=== PATIENT | female | born 1950 | race Caucasian/White ===

== ENCOUNTER → 2018-02-18 | Outpatient (CLI) | payer MEDICARE, OTHER | END | disposition home or self-care (01) | LOC: LABPAT 12:39 | PROVIDERS: ATTEND Orthopaedic Surgery | DX: Z01.812 Encounter for preprocedural laboratory examination (principal); M16.12 Unilateral primary osteoarthritis, left hip | CPT/HCPCS: 87070 ==

== ENCOUNTER 2018-02-28 05:45 | Inpatient (IN) | payer MEDICARE ==
[2018-02-15 09:07] VITALS: BMI 36.5
--- NOTE | 2018-02-27 11:04 | HP ---
HISTORY AND PHYSICAL DATE OF SERVICE: 02/28/2018. HISTORY: Ailin is a 67-year-old patient seen with symptomatic left hip osteoarthritis. After treatment options were discussed, she elected to proceed with left total hip arthroplasty. Consent regarding the procedure was obtained. Preoperative medical clearance was provided by Dr. Walsh. PAST MEDICAL HISTORY: Noncontributory. PAST SURGICAL HISTORY: Noncontributory. DAILY MEDICATIONS: Ibuprofen. ALLERGIES: None reported. SOCIAL HISTORY: Patient currently smokes cigarettes. PHYSICAL EXAMINATION: On physical evaluation of the left hip, there is diffuse tenderness, very limited range of motion with severe pain. Positive hip impingement sign. The left lower extremity is approximately 1 inch shorter than the right. Distal neurovascular exam is intact. RADIOGRAPHIC STUDIES: Radiographs of the left hip reveal severe osteoarthritic changes. IMPRESSION: 1. Left hip osteoarthritis. 2. Tobacco use. PLAN: Direct anterior left total hip arthroplasty. MMODL / IJN: [id number] /
[~2018-02-28 05:45] MED LIST: ACETAMINOPHEN TAB 500 MG TAB PO ONE; LIDOCAINE 1% 20 ML VIAL (10MG/ML) FOR IV START INTRADERMA PRN; MELOXICAM 7.5 MG TAB PO ONE; MIDAZOLAM 2 MG/2 ML VIAL IV PRN; TRANEXAMIC ACID 1,000 MG in SODIUM CHLORIDE 0.9% 50 ML IVPB ONE; ceFAZolin IN SWFI 2 GM/20 ML SYRINGE IVP ONE; fentaNYL (PF) 50 MCG/ML 2 ML AMP IV PRN
[2018-02-28] MEDS ORDERED: ONDANSETRON 4 MG/2 ML VIAL ONE (06:21)
[2018-02-28] MEDS: LACTATED RINGERS 1,000 ML IV SCH ×3 (07:05→22:17)
[2018-02-28] MEDS ORDERED: DEXAMETHASONE SOD PHOS (MDV) 100 MG/10 ML VIAL IV ONE (07:21)
[2018-02-28] MEDS ORDERED: MIDAZOLAM 2 MG/2 ML VIAL ONE (07:30)
[2018-02-28] MEDS ORDERED: ePHEDrine SULFATE/0.9% NACL/PF 50 MG/5 ML SYRINGE IV ONE (07:30)
[2018-02-28] MEDS ORDERED: TRANEXAMIC ACID 1,000 MG/10 ML VIAL ONE (07:30)
[2018-02-28] MEDS ORDERED: SODIUM CHLORIDE 0.9% 100 ML BAG ONE (07:30)
[2018-02-28] MEDS ORDERED: diphenhydrAMINE 50 MG/ML 1 ML VIAL ONE (07:30)
[2018-02-28] MEDS ORDERED: fentaNYL (PF) 50 MCG/ML 2 ML AMP ONE (07:30)
[2018-02-28] MEDS: ROPIVACAINE 246.25 MG, EPINEPHrine 0.5 MG, KETOROLAC 30 MG, cloNIDine HCL/PF 80 MCG, WA... MISCELLANE ONE ×10 (08:05→09:00)
[2018-02-28] MEDS ORDERED: LACTATED RINGERS 1,000 ML IV ONE (09:12)
--- NOTE | 2018-02-28 09:32 | FL ---
Fluoroscopy HISTORY: Left Hip replacement 20 seconds fluoroscopy time supplied to the referring clinician. 1 intraoperative C-arm image docume nts the procedure. See dictated report from orthopedic surgery.
--- NOTE | 2018-02-28 09:33 | XR ---
Limited left hip HISTORY: Left Hip replacement Intraoperative C-arm image documents the procedure
--- NOTE | 2018-02-28 09:33 | P.OP ---
Date of Procedure: 02/28/18 Preoperative Diagnosis: Left hip osteoarthritis Postoperative Diagnosis: Left hip osteoarthritis Procedure(s) Performed: Direct anterior left total hip arthroplasty Implants: 1. Depuy Corail KA size 12 press-fit standard collar femoral stem 2. Depuuy pinnacle 52 mm press-fit acetabular shell 3. Depuy pinnacle neutral polyethylene acetabular liner 36 mm ID 52 mm OD 4. Depuy metal femoral head 36 mm -2 Anesthesia: local, spinal Surgeon: Rubin Muir High Density Talc Coater Operator #1: Parish Shah Estimated Blood Loss (ml): 300 Pathology: other (Femoral head) Condition: stable Disposition: PACU Indications for Procedure: 67-year-old patient seen with symptomatic left hip osteoarthritis. After treatment options were discussed, she elected to proceed with total hip arthroplasty. Operative Findings: see description of procedure Description of Procedure: The patient was taken to the operative suite. Patient underwent a spinal anesthetic by the department of anesthesia. Patient was then transferred to the [place] table. Patient was given preoperative IV antibiotics and TXA. Both lower extremities were placed in standard leg spars. The hip was then prepped and draped in the normal sterile orthopedic fashion. A standard anterior incision was made beginning 3 cm lateral and 1 cm distal to the ASIS extending 10 cm. Dissection was then carried down through the subcutaneous soft tissues down to the fascia overlying the tensor fascia rajendra. An incision was now made through the fascia. Careful dissection was taken down exposing the tensor fascia rajendra muscle. A Cobra retractor was now placed along the medial femoral neck and a second one along the lateral femoral neck. The venous circumflex vessels were now identified, cauterized and clipped. We identified the anterior hip capsule. An incision was made through the hip capsule along the lateral border. Tag sutures were then placed along the anterior capsule and lateral capsule. We then performed a capsulotomy. Retractors were now placed around the femoral neck itself. A Cobra retractor was now placed along the anterior acetabulum. Good exposure was now noted of the femoral head/neck complex. Residual labrum was debrided out. We placed the extremity into 3 turns of fine traction. We were then able to introduce a skid in between the femoral head and acetabulum. A placed a awl into the femoral head. We took 2 turns of traction off the extremity. Rotation was now released. The femoral head was then dislocated without difficulty. Additional releasing was performed of the capsule. The head was then reduced. All traction was released. A femoral neck cut was now made with a sagittal saw. It was completed with an osteotome at the lateral neck area. The femoral head was now removed without difficulty. The extremity was now rotated to 60 of external rotation. It was locked in position. Residual labrum was now debrided out. Serial reaming was performed of the acetabulum. Once we reached the appropriate size and a trial was position and fit nicely. The appropriate size was now chosen opened and made available. The wound was irrigated with pulse lavage mechanical irrigation. The acetabular shell was introduced into the acetabulum without difficulty. The C-arm/fluoroscopy was now brought into the operative field. We made sure we had a true AP pelvic view. We now under direct C-arm/fluoroscopy introduced into the acetabular component with appropriate version and inclination. It was well seated and stable. The C-arm was pulled back. An appropriate liner was introduced and clicked into position. It was felt to be stable. At this point retractors were removed. The extremity was now placed into 120 external rotation with no traction. The leg was now dropped to the ground and adducted. Appropriate retractors were now positioned along the proximal femur. We also placed our femoral look into position. Additional capsular releasing was performed to gain access to the proximal femur. We now used a box osteotome. A canal finder was now utilized. Serial broaching was now performed until we reached the appropriate size with good overall rotational stability. Appropriate calcar planing was performed. A trial head/neck was placed into position. The hip was now reduced. The C-arm /fluoroscopy was brought back into the operative field. A spot film was obtained of the nonoperative hip. A spot film was obtained of the trial components. Overlays were performed, we noted good overall alignment and positioning for determining leg length. The C-arm/fluoroscopy was pulled back. Retractors were repositioned and the hip was dislocated. The leg was again taken down to the ground and adducted. Appropriate retractors were repositioned as well as the femoral hook. All trial components were removed. The wound was irrigated with pulse lavage mechanical irrigation. The soft tissues were infiltrated local analgesic. The femoral implant was opened along with the femoral head. The femoral implant was introduced with good purchase and fixation noted. The femoral head was introduced with good positioning and fixation noted. Retractors were now removed. The hip was now reduced. There appeared be good positioning of the hip. This was confirmed under fluoroscopy and spot films were obtained to document that. A second gram of TXA was given. Bipolar cautery had been utilized intermittently through the procedure for hemostasis. The wound was irrigated copiously with pulse lavage mechanical irrigation. The fascia was repaired with Vicryl suture. The subcutaneous soft tissues were repaired in layers with Vicryl suture. The skin was approximated with pernio/Dermabond. Sterile dressings were applied. Patient was then awakened, transferred to a bed and taken to recovery in stable condition. Beltran BECKER assisted with the procedure.
[2018-02-28] MEDS ORDERED: hydrOXYzine PAMOATE 25 MG CAP PO PRN (09:34)
[2018-02-28] MEDS ORDERED: HYDROmorphone 0.5 MG/0.5 ML SYRINGE IVP PRN ×3 (09:34)
[2018-02-28] MEDS ORDERED: NALOXONE 0.4 MG/ML 1 ML VIAL IV PRN (09:34)
[2018-02-28] MEDS ORDERED: HYDROcodone/APAP 7.5-325MG 1 EACH TAB PO PRN (09:34)
--- NOTE | 2018-02-28 10:04 | XR ---
Limited left hip HISTORY: Postop hip arthroplasty Single frontal view of the left hip Patient is status post left hip arthroplasty. There is anatomic alignment on this single view. Lucenc y in the soft tissues is compatible with postop state. IMPRESSION: Orthopedic follow-up.
--- NOTE | 2018-02-28 11:47 | P.CONS ---
History of Present Illness - Reason for Consult Consult date: 02/28/18 Medical management - Chief Complaint Left hip pain - History of Present Illness 67-year-old female with history of severe osteoarthritis with chronic worsening pain in the left hip presented to the hospital for anterior left total hip arthroplasty. Patient has had her surgery done, currently she has no complaints. No chest pain or shortness of breath. Pain in her left hip is tolerable and controlled with pain medication. Patient has no chronic medical conditions. She continues to smoke about 5 cigarettes a day. Review of Systems 12 point review of system performed, negative except HPI Past Medical History Past Medical History: Cancer, Osteoarthritis (OA) Additional Past Medical History / Comment(s): skin CA Arm History of Any Multi-Drug Resistant Organisms: None Reported Past Surgical History: Hysterectomy, Tonsillectomy Additional Past Surgical History / Comment(s): Cataracts,Colonoscopy, Skin CA removed from Arm Past Anesthesia/Blood Transfusion Reactions: No Reported Reaction Past Psychological History: No Psychological Hx Reported Smoking Status: Current every day smoker Past Alcohol Use History: Rare Additional Past Alcohol Use History / Comment(s): has smoked for about 40 yrs; cut down to 3-4 cigs a day Past Drug Use History: None Reported - Past Family History Mother Family Medical History: No Reported History Medications and Allergies Home Medications Medication Instructions Recorded Confirmed Type Acetaminophen [Tylenol] 500 mg PO Q4H PRN 02/28/18 02/28/18 History Allergies Allergy/AdvReac Type Severity Reaction Status Date / Time No Known Allergies Allergy Verified 02/28/18 10:25 Physical Exam Vitals: Vital Signs Temp Pulse Resp BP Pulse Ox 02/28/18 10:51 98.1 F 77 12 110/71 98 02/28/18 10:33 80 16 118/58 97 02/28/18 10:19 77 16 112/63 100 02/28/18 10:04 75 16 123/62 100 02/28/18 09:48 97.7 F 80 12 123/84 100 02/28/18 07:04 98.6 F 68 16 140/71 95 Intake and Output 02/27/18 02/28/18 02/28/18 22:59 06:59 14:59 Intake Total 1350 Output Total 300 Balance 1050 Intake: IV 1350 Output: Estimated Blood Loss 300 Other: Weight 84.822 kg Constitutional: No acute distress, conversant, pleasant Eyes:Anicteric sclerae, moist conjunctiva, no lid-lag, PERRLA, ENMT: Oropharynx clear, no erythema, exudates Neck: Supple, FROM, no masses, or JVD, No carotid bruits, No thyromegaly Lungs: Clear to auscultation, Clear to percussion, Normal respiratory effort, no accessory muscle use Cardiovascular: Heart regular in rate and rhythm, No murmurs, gallops, or rubs, No peripheral edema Abdominal: Soft, Nontender, no guarding, rebound or rigidity, Normoactive bowel sounds, No hepatomegaly, No splenomegaly, No palpable mass Skin: Normal temperature, tone, texture, turgor, no induration, No subcutaneous nodules, No rash, lesions, No ulcers Extremities: Left hip surgical dressings, No digital cyanosis, No clubbing, Pedal pulses intact and symmetrical, Radial pulses intact and symmetrical, No calf tenderness Psychiatric: Alert and oriented to person, place and time, appropriate affect, intact judgement Neuro: Muscles Strength 5/5 in all 4 extremities, Sensation to light touch grossly present throughout, Cranial nerves II-XII grossly intact, no focal sensory deficits Assessment and Plan Plan: #1 Severe was arthritis of the left hip status post anterior left total hip arthroplasty: Postoperative day #0 Pain control with [place], tramadol and Dilaudid IV when necessary Management per surgery #2 Smoking Counseled to quit Nicotine patch #3 DVT prophylaxis Lovenox subcu
[2018-02-28] MEDS: NICOTINE 14MG/24HR PATCH TRANSDERM SCH (12:28)
[2018-02-28] MEDS: traMADol 50 MG TAB PO SCH ×3 (13:28→22:05)
[2018-02-28] MEDS: ceFAZolin IN SWFI 2 GM/20 ML SYRINGE IVP SCH (16:34)
[2018-02-28] MEDS: HYDROcodone/APAP 7.5-325MG 1 EACH TAB PO PRN (16:42)
[2018-02-28] MEDS: SENNOSIDES-DOCUSATE SODIUM 1 EACH TAB PO SCH (22:11)
[2018-03-01] MEDS: ceFAZolin IN SWFI 2 GM/20 ML SYRINGE IVP SCH (01:16)
[2018-03-01 07:07] LABS: Basophils % (A) 0 %; Eosinophils % (A) 0 %; HCT 34.1 % (34.0-46.0); Lymphocytes # (A) 2.4 k/uL (1.0-4.8); Lymphocytes % (A) 27 %; MCH 30.2 pg (25.0-35.0); MCHC 32.4 g/dL (31.0-37.0); MCV 93.1 fL (80.0-100.0); Mean Platelet Volume 6.5; Monocytes # (A) 0.6 k/uL (0-1.0); Monocytes % (A) 6 %; Neutrophils # (A) 5.6 k/uL (1.3-7.7); Neutrophils % (A) 64 %; Platelet Count 248 k/uL (150-450); RBC 3.66 m/uL (3.80-5.40); RDW 14.5 % (11.5-15.5); WBC 8.7 k/uL (3.8-10.6)
[2018-03-01] MEDS: ENOXAPARIN 40 MG/0.4 ML SYRINGE SQ SCH (08:17)
[2018-03-01] MEDS: FAMOTIDINE 20 MG TAB PO SCH (08:18)
[2018-03-01] MEDS: MELOXICAM 7.5 MG TAB PO SCH (08:19)
[2018-03-01] MEDS: HYDROcodone/APAP 7.5-325MG 1 EACH TAB PO PRN (08:19)
[2018-03-01] MEDS: NICOTINE 14MG/24HR PATCH TRANSDERM SCH (08:20)
[2018-03-01] MEDS: traMADol 50 MG TAB PO SCH ×4 (09:12→23:19)
--- NOTE | 2018-03-01 11:25 | P.PN ---
Subjective Progress Note Date: 03/01/18 Principal diagnosis: Status post left direct anterior total hip arthroplasty Patient seen today resting in her hospital chair, she appears comfortable. She denies any new acute pain. She's tolerated physical therapy well. She denies any headaches, lightheadedness, chest pain or shortness of breath. Objective - Vital Signs Vital signs: Vital Signs Temp 97.4 F L 03/01/18 07:20 Pulse 81 03/01/18 07:20 Resp 20 03/01/18 07:20 BP 105/59 03/01/18 07:20 Pulse Ox 98 03/01/18 07:20 Intake & Output 02/28/18 03/01/18 03/01/18 18:59 06:59 18:59 Intake Total 1350 1080 250 Output Total 300 200 Balance 1050 1080 50 Weight 84.822 kg Intake: IV 1350 Oral 1080 250 Output: Urine 200 Estimated Blood Loss 300 Other: Voiding Method Toilet # Voids 1 2 # Bowel Movements 0 - Exam Left lower extremity: Incision is clean, dry, and intact. The prineo tape is in good condition. There is minimal soft tissue swelling and ecchymosis surrounding the medial and lateral aspects of the incision. Calf is soft, no tenderness with palpation. Plantar flexion, dorsiflexion, EHL, FHL are intact. Sensory exam to light touch throughout the extremity is intact, dorsal pedis pulses 2+. - Labs CBC & Chem 7: 03/01/18 06:12 Labs: Abnormal Lab Results - Last 24 Hours (Table) 03/01/18 Range/Units 06:12 RBC 3.66 L (3.80-5.40) m/uL Hgb 11.0 L (11.4-16.0) gm/dL Assessment and Plan Plan: Assessment: 1. Postop day 1 status post direct anterior left total hip arthroplasty Plan: Daily dressing changes Wound care was discussed, including showering techniques Pain control, continue supportive oral medication GI and DVT prophylaxis, continue Lovenox Medical recommendations Discharge planning: Patient likely be discharged to rehab in the next day or 2 Time with Patient: Less than 30
--- NOTE | 2018-03-01 12:51 | P.PN ---
Subjective Progress Note Date: 03/01/18 Principal diagnosis: Hip osteoarthritis status post replacement Doing well, was sitting in the chair this am. Tolerating physical therapy. Objective - Vital Signs Vital signs: Vital Signs Temp 97.4 F L 03/01/18 07:20 Pulse 81 03/01/18 07:20 Resp 20 03/01/18 07:20 BP 105/59 03/01/18 07:20 Pulse Ox 98 03/01/18 07:20 Intake & Output 02/28/18 03/01/18 03/01/18 18:59 06:59 18:59 Intake Total 1350 1080 250 Output Total 300 200 Balance 1050 1080 50 Weight 84.822 kg Intake: IV 1350 Oral 1080 250 Output: Urine 200 Estimated Blood Loss 300 Other: Voiding Method Toilet # Voids 1 2 # Bowel Movements 0 - Exam Constitutional: No acute distress, conversant, pleasant Eyes:Anicteric sclerae, moist conjunctiva, no lid-lag, PERRLA, ENMT: Oropharynx clear, no erythema, exudates Neck: Supple, FROM, no masses, or JVD, No carotid bruits, No thyromegaly Lungs: Clear to auscultation, Clear to percussion, No accessory muscle use Cardiovascular: Heart regular in rate and rhythm, No murmurs, gallops, or rubs, No peripheral edema Abdominal: Soft, Nontender, no guarding, rebound or rigidity, Normoactive bowel sounds, No hepatomegaly, No splenomegaly, No palpable mass Skin: No rash, lesions, No ulcers Extremities: Left hip surgical dressings, No digital cyanosis, No clubbing, Pedal pulses intact and symmetrical, Radial pulses intact and symmetrical, No calf tenderness Neuro: Gen. weakness - Labs CBC & Chem 7: 03/01/18 06:12 Labs: Abnormal Lab Results - Last 24 Hours (Table) 03/01/18 Range/Units 06:12 RBC 3.66 L (3.80-5.40) m/uL Hgb 11.0 L (11.4-16.0) gm/dL Assessment and Plan Plan: #1 Severe osteoarthritis of the left hip status post anterior left total hip arthroplasty: Postoperative day #1 Pain control with [place], tramadol and Dilaudid IV when necessary Management per surgery #2 Smoking Counseled to quit Nicotine patch #3 DVT prophylaxis Lovenox subcu
[2018-03-01] MEDS: LACTATED RINGERS 1,000 ML IV SCH (13:46)
[2018-03-01] MEDS: SENNOSIDES-DOCUSATE SODIUM 1 EACH TAB PO SCH (20:45)
[2018-03-02 07:40] LABS: HCT 33.6 % (34.0-46.0); MCHC 32.8 g/dL (31.0-37.0); MCV 91.4 fL (80.0-100.0); Mean Platelet Volume 6.8; Platelet Count 258 k/uL (150-450); RBC 3.67 m/uL (3.80-5.40); RDW 14.4 % (11.5-15.5); WBC 7.6 k/uL (3.8-10.6)
[2018-03-02 07:52] LABS: Anion Gap 9 mmol/L; Blood Urea Nitrogen 13 mg/dL (7-17); Calcium 8.5 mg/dL (8.4-10.2); Carbon Dioxide 27 mmol/L (22-30); Chloride 104 mmol/L (98-107); Glucose 93 mg/dL (74-99); Phosphorus 2.8 mg/dL (2.5-4.5); Potassium 4.6 mmol/L (3.5-5.1); Sodium 140 mmol/L (137-145)
[2018-03-02] MEDS ORDERED: ONDANSETRON 4 MG/2 ML VIAL ONE (08:08)
[2018-03-02] MEDS ORDERED: ONDANSETRON 4 MG/2 ML VIAL IVP PRN (08:21)
[2018-03-02] MEDS: FAMOTIDINE 20 MG TAB PO SCH (09:24)
[2018-03-02] MEDS: ENOXAPARIN 40 MG/0.4 ML SYRINGE SQ SCH (09:24)
[2018-03-02] MEDS: traMADol 50 MG TAB PO SCH ×2 (09:25→13:45)
[2018-03-02] MEDS: NICOTINE 14MG/24HR PATCH TRANSDERM SCH (09:25)
[2018-03-02] MEDS: MELOXICAM 7.5 MG TAB PO SCH (09:25)
--- NOTE | 2018-03-02 11:00 | P.PN ---
Subjective Progress Note Date: 03/02/18 Principal diagnosis: Hip pain Patient is a 67-year-old female with a history of skin cancer, tobacco abuse, osteoarthritis, and morbid obesity with BMI 36.5 who presented to the hospital for elective left hip arthroplasty. She subsequently underwent an anterior left hip arthroplasty on 02/28/18 without any immediate complications. Her plan is to discharge to rehab. We are asked to consult for medical management of her tobacco abuse. Patient seen and examined at bedside. She is feeling terrible this morning. She states she is still having some hip pain despite taking [place]. However her nausea is not controlled. She feels as though she can't eat. She is so nauseous. She is also feeling lightheaded and dizzy. She denies any chest pain or shortness of breath. She states she has not had a bowel movement since surgery. Objective - Vital Signs Vital signs: Vital Signs Temp 98.3 F 03/02/18 06:48 Pulse 71 03/02/18 06:48 Resp 16 03/02/18 06:48 BP 97/65 03/02/18 06:48 Pulse Ox 95 03/02/18 06:48 Intake & Output 03/01/18 03/02/18 03/02/18 18:59 06:59 18:59 Intake Total 250 Output Total 200 Balance 50 Intake: Oral 250 Output: Urine 200 Other: # Voids 2 2 - Exam General: non toxic, mild distress, appears at stated age, obese Derm: warm, dry, dressing in place over left hip Head: atraumatic, normocephalic, symmetric Eyes: EOMI, no lid lag, anicteric sclera Mouth: no lip lesion, mucous membranes dry Cardiovascular: S1S2 reg, no murmur, positive posterior tibial pulse bilateral, Lungs: Decreased breath sounds bilateral, no rhonchi, no rales , no accessory muscle use Abdominal: soft, nontender to palpation, no guarding, no appreciable organomegaly Ext: no gross muscle atrophy, trace edema left leg, no edema right leg, no contractures Neuro: CN II-XI grossly intact, no focal neuro deficits Psych: Alert, oriented, appropriate affect - Labs CBC & Chem 7: 03/02/18 06:15 03/02/18 06:15 Labs: Abnormal Lab Results - Last 24 Hours (Table) 03/02/18 Range/Units 06:15 RBC 3.67 L (3.80-5.40) m/uL Hgb 11.0 L (11.4-16.0) gm/dL Hct 33.6 L (34.0-46.0) % Assessment and Plan Assessment: Osteoarthritis status post left anterior total hip arthroplasty -Pain control -PT/OT -DVT prophylaxis per orthopedics with Lovenox -Patient's plan is to go to rehab Nausea -Continue with bowel regiment -Zofran -Encourage patient to take pain medications with food or asked for crackers Tobacco abuse -Nicotine replacement -Tobacco cessation Morbid obesity with BMI 36.5 -Structured outpatient weight loss
--- NOTE | 2018-03-02 12:10 | P.PN ---
Progress Note - Text Progress Note Date: 03/02/18 Patient seen sitting in chair comfortably. Patient reports discomfort but tolerable. Patient denies any new complaints. Incision stable. Logrolling hip without pain. Jones and Homans negative. Distal neurovascular exam is intact. Impression: Status post direct anterior left total hip arthroplasty Plan: Medical management DVT prophylaxis Increased activities as tolerated Probable transfer to SNF tomorrow
[2018-03-02] MEDS: SENNOSIDES-DOCUSATE SODIUM 1 EACH TAB PO SCH (21:22)
[2018-03-03 00:51] VITALS: TEMP 98.7
[2018-03-03] MEDS: traMADol 50 MG TAB PO SCH ×2 (03:36→09:16)
[2018-03-03 06:57] LABS: Basophils % (A) 0 %; Eosinophils # (A) 0.1 k/uL (0-0.7); Eosinophils % (A) 2 %; HCT 33.9 % (34.0-46.0); Lymphocytes # (A) 2.1 k/uL (1.0-4.8); Lymphocytes % (A) 32 %; MCH 30.1 pg (25.0-35.0); MCHC 32.6 g/dL (31.0-37.0); MCV 92.5 fL (80.0-100.0); Mean Platelet Volume 6.6; Monocytes # (A) 0.4 k/uL (0-1.0); Monocytes % (A) 6 %; Neutrophils # (A) 3.7 k/uL (1.3-7.7); Neutrophils % (A) 58 %; Platelet Count 247 k/uL (150-450); RBC 3.66 m/uL (3.80-5.40); RDW 14.4 % (11.5-15.5); WBC 6.4 k/uL (3.8-10.6)
[2018-03-03 07:33] VITALS: BP 105/70; PULSE 73; RESP 16
[2018-03-03] MEDS: MELOXICAM 7.5 MG TAB PO SCH (09:12)
[2018-03-03] MEDS: ENOXAPARIN 40 MG/0.4 ML SYRINGE SQ SCH (09:12)
[2018-03-03] MEDS: FAMOTIDINE 20 MG TAB PO SCH (09:13)
[2018-03-03] MEDS: NICOTINE 14MG/24HR PATCH TRANSDERM SCH (09:16)
--- NOTE | 2018-03-03 09:25 | P.PN ---
Subjective Progress Note Date: 03/03/18 Principal diagnosis: Hip pain Patient is a 67-year-old female with a history of skin cancer, tobacco abuse, osteoarthritis, and morbid obesity with BMI 36.5 who presented to the hospital for elective left hip arthroplasty. She subsequently underwent an anterior left hip arthroplasty on 02/28/18 without any immediate complications. Her plan is to discharge to rehab. may need home health. We are asked to consult for medical management of her tobacco abuse. Patient seen and examined at bedside. Feeling better this morning. She has not necessitated pain medication overnight. No chest pain or shortness of breath. Nausea is resolved. Her main concern with going home as that she does live alone with a cat. She does have children that can help however her bathtub was elevated and she is concerned about being able to safely get in and out with her recent surgery. I discussed this with nursing and case management. We will discuss with physical therapy and see if there is an assistive device to help as we await to see if we are able to obtain insurance authorization for residential facility. Objective - Vital Signs Vital signs: Vital Signs Temp 98.7 F 03/03/18 07:25 Pulse 73 03/03/18 07:25 Resp 16 03/03/18 07:25 BP 105/70 03/03/18 07:25 Pulse Ox 97 03/03/18 07:25 Intake & Output 03/02/18 03/03/18 03/03/18 18:59 06:59 18:59 Intake Total 180 Balance 180 Intake: Oral 180 Other: Voiding Method Toilet # Voids 1 1 - Exam General: non toxic, no distress, appears at stated age, obese Derm: warm, dry, dressing in place over left hip Head: atraumatic, normocephalic, symmetric Eyes: EOMI, no lid lag, anicteric sclera Mouth: no lip lesion, mucous membranes dry Cardiovascular: S1S2 reg, no murmur, positive posterior tibial pulse bilateral, Lungs: Decreased breath sounds bilateral, no rhonchi, no rales , no accessory muscle use Abdominal: soft, nontender to palpation, no guarding, no appreciable organomegaly Ext: no gross muscle atrophy, trace edema left leg, no edema right leg, no contractures Neuro: CN II-XI grossly intact, no focal neuro deficits Psych: Alert, oriented, appropriate affect - Labs CBC & Chem 7: 03/03/18 06:21 03/02/18 06:15 Labs: Abnormal Lab Results - Last 24 Hours (Table) 03/03/18 Range/Units 06:21 RBC 3.66 L (3.80-5.40) m/uL Hgb 11.0 L (11.4-16.0) gm/dL Hct 33.9 L (34.0-46.0) % Assessment and Plan Assessment: Osteoarthritis status post left anterior total hip arthroplasty -Pain control -PT/OT -DVT prophylaxis per orthopedics with Lovenox -Home with home health vs rehab Nausea, resolved Tobacco abuse -Nicotine replacement -Tobacco cessation Morbid obesity with BMI 36.5 -Structured outpatient weight loss Medically stable for discharge. DVT prophylaxis: Lovenox Discussed with: Patient, nursing, case management Anticipated discharge: today Anticipated discharge place: home with home health vs SNF. A total of 20 minutes was spent on the care of this complex patient more than 50 % of the time was spent in counseling and care coordination.
--- NOTE | 2018-03-03 12:28 | P.PN ---
Subjective Progress Note Date: 03/03/18 Principal diagnosis: Status post left direct anterior total hip arthroplasty Patient seen today resting in her hospital chair, she appears comfortable. She denies any new acute pain. She's tolerated physical therapy well. She denies any headaches, lightheadedness, chest pain or shortness of breath. Objective - Vital Signs Vital signs: Vital Signs Temp 98.7 F 03/03/18 07:25 Pulse 73 03/03/18 07:25 Resp 16 03/03/18 07:25 BP 105/70 03/03/18 07:25 Pulse Ox 97 03/03/18 07:25 Intake & Output 03/02/18 03/03/18 03/03/18 18:59 06:59 18:59 Intake Total 180 Balance 180 Intake: Oral 180 Other: Voiding Method Toilet # Voids 1 1 - Exam Left lower extremity: Incision is clean, dry, and intact. The prineo tape is in good condition. There is minimal soft tissue swelling and ecchymosis surrounding the medial and lateral aspects of the incision. Calf is soft, no tenderness with palpation. Plantar flexion, dorsiflexion, EHL, FHL are intact. Sensory exam to light touch throughout the extremity is intact, dorsal pedis pulses 2+. - Labs CBC & Chem 7: 03/03/18 06:21 03/02/18 06:15 Labs: Abnormal Lab Results - Last 24 Hours (Table) 03/03/18 Range/Units 06:21 RBC 3.66 L (3.80-5.40) m/uL Hgb 11.0 L (11.4-16.0) gm/dL Hct 33.9 L (34.0-46.0) % Assessment and Plan Plan: Assessment: 1. Postop day #3 status post direct anterior left total hip arthroplasty Plan: Daily dressing changes Wound care was discussed, including showering techniques Pain control, continue supportive oral medication GI and DVT prophylaxis, will discharge home on Xarelto 10mg daily Medical recommendations Discharge planning: Plan for discharge to rehab today Time with Patient: Less than 30
--- NOTE | 2018-03-03 12:32 | P.DS ---
Providers Date of admission: 02/28/18 05:45 Expected date of discharge: 03/03/18 Attending physician: Rubin Muir Consults: 02/28/18 09:34 Consult Physician Routine Consulting Provider: Lynn Adrian Consult Reason/Comments: Medical management Do you want consulting provider notified?: Yes Primary care physician: Malia Walsh Hospital Course: Date of admission: 02/28/2018 Date of discharge: 03/03/2018 Admission diagnosis: Status post direct anterior left total hip arthroplasty Discharge diagnosis: Same Attending physician: Dr. Muir Surgical procedures: Direct anterior left total hip arthroplasty Brief history: Patient is a 67-year-old female with a history of progressive primary left hip osteoarthritis. At this point patient has failed conservative treatment measures and has opted to proceed with a elective direct anterior left total hip arthroplasty. Hospital course: Details of patient's surgery can be found in operative report. Patient tolerated the procedure well and was subsequently transported to orthopedic floor. Patient's orthopeidc and medical care was provided daily. Patient had daily laboratory tests performed for evaluation of overall blood counts. Patient had daily physical therapy to include strengthening range of motion as well as education with walker ambulation. Patient was treated with Lovenox for their postoperative DVT prophylaxis during their inpatient stay. Patient was noted to have a relatively uneventful postoperative course. Patient reported satisfactory pain control with oral pain medications by postoperative day 0. Patient showed satisfactory progress with physical therapy. Patient moved steadily through the program and had no difficulty meeting the goals by postoperative day 3. Given patient's otherwise satisfactory course and having met physical therapy goals, plan is to discharge patient rehab on postoperative day 3. Discharge condition/disposition: Patient will be discharged rehab in stable condition. Discharge medications: Instructions are given on resumption of patient's normal daily medications per primary care recommendation, in addition patient will be prescribed [place] 7.5mg/325mg, Colace 100mg, Xarelto 10mg. Discharge instructions: 1. Wound care and infection precautions, keep incision dry and covered while showering, no lotions, creams, moisturizers. No soaking, tubs, pools, hottubs. Do not scrub over the incision. 2. Weight-bear as tolerated with walker / cane until follow-up. 3. Ice and elevate when necessary. Do not exceed 20 minutes per hour with ice pack. 4. Utilize compression sleeve until seen at first follow up appointment. 5. Visiting nursing care. 6. Home physical therapy. 7. Pain meds and anticoagulants per prescription. 8. Pain medication has potential to cause constipation. Increase oral fluid and fiber intake. Contact primary care provider if you have not had a bowel movement within 48 hours after discharge 9. No anti-inflammatory medication until discussed at first post operative visit, this including Motrin, Aleve, Mobic, Diclofenac. 10. Follow up in office at 2 weeks postop with Beltran Shah PA-C 11. Follow up with your primary care doctor 7-10 days after discharge. 12. Contact [facility] with any questions, . Procedures: Direct anterior left total hip arthroplasty Patient Condition at Discharge: Good Plan - Discharge Summary Discharge Rx Participant: No New Discharge Prescriptions: New Docusate [Colace] 100 mg PO DAILY #30 capsule HYDROcodone/APAP 7.5-325MG [[place] 7.5] 1 - 2 each PO Q6HR PRN #40 tab PRN Reason: Pain Rivaroxaban [Xarelto] 10 mg PO DAILY #28 tab Continue Acetaminophen [Tylenol] 500 mg PO Q4H PRN PRN Reason: Pain Discharge Medication List Acetaminophen [Tylenol] 500 mg PO Q4H PRN 02/28/18 [History] Docusate [Colace] 100 mg PO DAILY #30 capsule 03/03/18 [Rx] HYDROcodone/APAP 7.5-325MG [[place] 7.5] 1 - 2 each PO Q6HR PRN #40 tab 03/03/18 [ Rx] Rivaroxaban [Xarelto] 10 mg PO DAILY #28 tab 03/03/18 [Rx] Follow up Appointment(s)/Referral(s): Malia Walsh MD [Primary Care Provider] - 1 Week (Office will call with appointment time) Parish Shah PAC [PHYSICIAN ART HANDLER] - 03/16/18 1:50 pm Activity/Diet/Wound Care/Special Instructions: Orthopedic Discharge Instructions: 1. Wound care and infection precautions, keep incision dry and covered while showering, no lotions, creams, moisturizers. No soaking, pools, hot tubs. Do not scrub over incision. 2. Weight-bear as tolerated with walker / cane until follow-up. 3. Ice and elevate when necessary. Do not exceed 20 minutes per hour with ice pack. 4. Utilize compression sleeve until seen at first follow up appointment. 5. Visiting nursing care. 6. Home physical therapy. 7. Pain meds and anticoagulants per prescription. 8. Pain medication has potential to cause constipation. Increase oral fluid and fiber intake. Contact primary care provider if you have not had a bowel movement within 48 hours after discharge. 9. No anti-inflammatory medication until discussed at first post operative visit, this including Motrin, Aleve, Mobic, Diclofenac. 10. Follow up in office at 2 weeks postop with Beltran Shah PA-C 11. Follow up with your primary care doctor 7-10 days after discharge. 12. Contact [facility] with any questions, . Discharge Disposition: TRANSFER TO SNF/ECF
== END 2018-03-03 14:25 | DRG 470 ==
LOC: 2ORMAIN 05:45 → 3SUR 09:20
PROVIDERS: ADMIT Orthopaedic Surgery; ATTEND Orthopaedic Surgery
PROC: 0SRB02A Replacement of Left Hip Joint with Metal on Polyethylene Synthetic Substitute, Uncemented, Open Approach (ICD-10-PCS; principal; 2018-02-28 07:30)
DX: M16.12 Unilateral primary osteoarthritis, left hip (principal); E66.01 Morbid (severe) obesity due to excess calories; F17.210 Nicotine dependence, cigarettes, uncomplicated; Z68.36 Body mass index [BMI] 36.0-36.9, adult; Z90.710 Acquired absence of both cervix and uterus; Z98.51 Tubal ligation status; Z85.820 Personal history of malignant melanoma of skin; Z98.42 Cataract extraction status, left eye; Z98.41 Cataract extraction status, right eye; Z96.1 Presence of intraocular lens; Z82.49 Family history of ischemic heart disease and other diseases of the circulatory system; Z80.9 Family history of malignant neoplasm, unspecified
CPT/HCPCS: 36415; 73501; 80048; 83735; 84100; 85025; 85027; 86850; 86900; 86901; 88300

== ENCOUNTER → 2019-08-01 | Outpatient (CLI) | payer MEDICARE ==
[~2019-08-01] MED LIST changes: -ACETAMINOPHEN TAB 500 MG TAB PO ONE; +DOBUTamine DRIP for NUC MED 500 MG in DEXTROSE/WATER 1 250ML.BAG IV ONE; -LIDOCAINE 1% 20 ML VIAL (10MG/ML) FOR IV START INTRADERMA PRN; -MELOXICAM 7.5 MG TAB PO ONE; -MIDAZOLAM 2 MG/2 ML VIAL IV PRN; -TRANEXAMIC ACID 1,000 MG in SODIUM CHLORIDE 0.9% 50 ML IVPB ONE; -ceFAZolin IN SWFI 2 GM/20 ML SYRINGE IVP ONE; -fentaNYL (PF) 50 MCG/ML 2 ML AMP IV PRN
--- NOTE | 2019-08-01 12:11 | ECHOS ---
STRESS ECHOCARDIOGRAM INDICATIONS: Pre-surgery MEDICATIONS: BASELINE HEART RATE: 71 BASELINE BLOOD PRESSURE: 128/71 MAXIMUM HEART RATE: 138 MAXIMUM BLOOD PRESSURE: 150/65 85% MPHR: 128 100% MPHR: 151 METS: MAXIMUM STAGE REACHED: TOTAL EXERCISE TIME: CLINICAL INFORMATION: This is a dobutamine echo. Baseline EKG revealed normal sinus rhythm with evidence of isolated PVCs, no acute changes with dobutamine administration as per protocol. The heart rate went up to 138 beats per minute which is more than 85% of predicted maximal. Isolated PVCs seem to disappear as the heart rate went up. Patient did not have any significant symptoms. By EKG criteria, this is a negative stress test for ischemia with dobutamine administration. Baseline echo images revealed normal wall motion and wall thickening of all segments. With dobutamine administration as per protocol, there was progressive increase in contractility noted involving all segments suggesting that there is no evidence of stress-induced ischemia on this study. FINAL IMPRESSION: 1. By EKG criteria, this is a negative dobutamine stress test. 2. Normal dobutamine stress echocardiogram without evidence of ischemia. MMODL / IJN: [id number] /
== END | disposition home or self-care (01) ==
LOC: RADNMMAIN 08:56
PROVIDERS: ATTEND Internal Medicine
DX: R94.31 Abnormal electrocardiogram [ECG] [EKG] (principal)
CPT/HCPCS: 93351; J1250

== ENCOUNTER → 2019-08-04 | Outpatient (CLI) | payer MEDICARE | LOC: LABPAT 09:16 | PROVIDERS: ATTEND Orthopaedic Surgery | DX: Z01.812 Encounter for preprocedural laboratory examination (principal) | CPT/HCPCS: 87070 ==

== ENCOUNTER 2019-08-14 11:44 | Inpatient (IN) | payer MEDICARE ==
--- NOTE | 2019-08-13 10:36 | HP ---
HISTORY AND PHYSICAL REASON FOR ADMISSION: Surgery is 08/14/2019 HISTORY OF PRESENT ILLNESS: Ailin Pardo is a 69-year-old patient seen with symptomatic left knee osteoarthritis. We discussed options for treatment. She elected to proceed with left total knee arthroplasty. Consent was obtained. PAST MEDICAL HISTORY: Noncontributory. PAST SURGICAL HISTORY: Left total hip arthroplasty. DAILY MEDICATIONS: Ibuprofen. ALLERGIES: None reported. SOCIAL HISTORY: She smokes cigarettes. PHYSICAL EXAMINATION: Evaluation of the left knee: Range of motion is -3 to 100. There is a mild effusion present. She is tender along both lateral medial joint lines. Crepitus along medial and lateral patellofemoral compartments with range of motion. There is pain with patellofemoral compression. Her ligaments are stable. Hip rotation without pain. Distal neurovascular exam is intact. RADIOGRAPHS: Radiographs of the left knee revealed moderate to severe osteoarthritic changes diffusely. IMPRESSION: 1. Left knee osteoarthritis. 2. Tobacco use. PLAN: Left total knee arthroplasty. Surgery scheduled for 08/14/2019. MMODL / IJN: [id number] /
[~2019-08-14 11:44] MED LIST changes: +ACETAMINOPHEN TAB 500 MG TAB PO ONE; +DEXAMETHASONE SOD PHOSPHATE 10 MG/ML 1 ML VIAL IV ONE; -DOBUTamine DRIP for NUC MED 500 MG in DEXTROSE/WATER 1 250ML.BAG IV ONE; +HYDROmorphone 0.5 MG/0.5 ML SYRINGE IVP PRN; +LIDOCAINE 1% 20 ML VIAL (10MG/ML) FOR IV START INTRADERMA PRN; +MELOXICAM 7.5 MG TAB PO ONE; +MIDAZOLAM 2 MG/2 ML VIAL IV PRN; +ONDANSETRON 4 MG/2 ML VIAL IVP ONE; +ROPIVACAINE 246.25 MG, EPINEPHrine 0.5 MG, KETOROLAC 30 MG, cloNIDine HCL/PF 80 MCG, WA... MISCELLANE ONE; +TRANEXAMIC ACID 1,000 MG in SODIUM CHLORIDE 0.9% 100 ML IVPB ONE; +fentaNYL (PF) 50 MCG/ML 2 ML AMP IV PRN
[2019-08-14] MEDS: LACTATED RINGERS 1,000 ML IV SCH ×2 (12:29→19:44)
[2019-08-14] MEDS ORDERED: MIDAZOLAM 2 MG/2 ML VIAL ONE (15:03)
[2019-08-14] MEDS ORDERED: fentaNYL (PF) 50 MCG/ML 2 ML AMP ONE (15:03)
[2019-08-14] MEDS ORDERED: PROPOFOL 10 MG/ML 20 ML VIAL IV ONE (15:03)
[2019-08-14] MEDS ORDERED: TRANEXAMIC ACID 1,000 MG/10 ML VIAL ONE (15:03)
[2019-08-14] MEDS ORDERED: GLYCOPYRROLATE 0.2 MG/ML 2 ML VIAL ONE (15:03)
[2019-08-14] MEDS ORDERED: SODIUM CHLORIDE 0.9% 100 ML BAG ONE (15:03)
[2019-08-14] MEDS ORDERED: NEOSTIGMINE 1 MG/ML 10 ML VIAL ONE (15:03)
[2019-08-14] MEDS ORDERED: ROCURONIUM BROMIDE 10 MG/ML 10 ML VIAL IV ONE (15:03)
[2019-08-14] MEDS ORDERED: LIDOCAINE 1% INJ 10MG/ML (20 ML MDV) ONE (15:03)
[2019-08-14] MEDS ORDERED: ALBUTEROL INHALER 60 PUFF/8 GM INHALER INHALATION ONE (15:03)
[2019-08-14] MEDS ORDERED: SUCCINYLCHOLINE CHLORIDE 100 MG/5 ML SYR IV ONE (15:03)
[2019-08-14] MEDS ORDERED: ceFAZolin 3,000 MG in SODIUM CHLORIDE 0.9% IRRIGATIO 3,000 ML IRRIGATION ONE (15:15)
[2019-08-14] MEDS ORDERED: LACTATED RINGERS 1,000 ML IV ONE (15:15)
[2019-08-14] MEDS ORDERED: NALOXONE 0.4 MG/ML 1 ML VIAL IV PRN (17:01)
[2019-08-14] MEDS ORDERED: HYDROmorphone 0.5 MG/0.5 ML SYRINGE IVP PRN ×3 (17:01)
[2019-08-14] MEDS ORDERED: ONDANSETRON 4 MG/2 ML VIAL IVP PRN (17:01)
--- NOTE | 2019-08-14 17:01 | P.OP ---
Date of Procedure: 08/14/19 Preoperative Diagnosis: Left knee osteoarthritis Postoperative Diagnosis: Left knee osteoarthritis Procedure(s) Performed: Left total knee arthroplasty Implants: 1. Depuy attune size 4 left cruciate retaining cemented femur 2. Depuy attune size 4 left fixed bearing cemented tibial baseplate 3. Depuy attune size 4 fixed bearing cruciate retaining a millimeter polyethylene tibial insert 4. Depuy attune 35 mm all polyethylene cemented patella Anesthesia: GETA, regional (Adductor canal catheter), local Surgeon: Rubin Muir Rooming House Operator #1: Parish Shah Estimated Blood Loss (ml): 35 Pathology: none sent (Bone) Condition: stable Disposition: PACU Indications for Procedure: 69-year-old patient seen with progressive symptomatic left knee osteoarthritis. After treatment options were discussed, she elected to proceed with total knee arthroplasty. Operative Findings: See description of procedure Description of Procedure: Patient was taken to the operative suite after having an adductor canal catheter placed by the department of anesthesia for postoperative pain management. Patient underwent a general anesthetic by the department of anesthesia. Patient was given preoperative IV intake antibiotics and TXA. A well-padded tourniquet was placed about the left lower extremity. The lower extremity was then prepped and draped in the normal sterile orthopedic fashion. The extremity was elevated, a tourniquet was insufflated to 300. A standard anterior incision was made sharply through skin. Dissection was taken down through the subcutaneous soft tissues down to the extensor mechanism. A medial arthrotomy was performed, patella was everted and knee was flexed. There was advanced osteoarthritis noted. I introduced my distal intramedullary femoral drill. I then introduced the distal femoral cutting jig. Beltran BECKER secured the cutting jig with 2 pins. I held retractors in position while Beltran BECKER performed the distal femoral resection through the guide area we now removed her distal femoral cutting guide. We now placed our 4-in-1 femoral cutting block and positioned and it was secured with 2 pins by Beltran BECKER while I held the block in position. The distal femoral finishing was now completed. A proximal tibial cutting guide was positioned. I held the guide in the appropriate position with both hands well Beltran BECKER inserted stabilizing pins into the guide. Proximal tibial cut was made. We now placed a trial femoral component into position, along with an appropriate size tibial tray and insert. We now took t he knee through range of motion and had full extension good flexion and good overall soft tissue balance noted. The patella was everted and stabilized with 2 towel clips held by Beltran BECKER while I performed a flush with patellar quad tendon utilizing a fresh sawblade. We templated the patella, appropriate drill holes were made. An appropriate trial patella was positioned, knee was taken through full range of motion with the patella tracking very nicely. The trial patella was removed. Drill holes were made through the femoral component. All trial components were removed after marking off the appropriate rotation of the tibia. Retractors were now positioned along the proximal tibia. An appropriate keel punch was made with the appropriate size tibial guide by myself on Beltran BECKER assisted by holding retractors. At this point appropriate size implants were chosen and opened. The joint was irrigated copiously with pulse lavage mechanical irrigation. The posterior capsule was infiltrated with local analgesic. The wound was irrigated with pulse lavage mechanical irrigation. We mixed antibiotic methylmethacrylate. We placed the knee into flexion. We placed multiple retractors assisted by Beltran BECKER to expose the proximal tibia. Once the methyl methacrylate was ready, the tibial component was cemented into place removing any excess methylmethacrylate form by both myself and Beltran BECKER. The femoral component was cemented into place removing the removing any excess methylmethacrylate performed by both myself and Beltran BECKER. We then inserted the appropriate size polyethylene tibial insert. We made sure that it was locked into position. We took the knee into full extension, and then back in a flexion making sure we had removed any excess methylmethacrylate. The patellar component was then cemented down and secured with clamp. Excess methylmethacrylate removed. We kept the knee in full extension, patellar clamp in position until methylmethacrylate had hardened. Once it had hardened the patellar clamp was removed. The knee was taken through full range of motion. The patella tracked nicely. There was good soft tissue balancing. The tourniquet was now released. Additional hemostasis was achieved via electrocautery. A second gram of TXA was given. The wound again was irrigated with pulse lavage mechanical irrigation. The superficial soft tissues were infiltrated local analgesic. The extensor mechanism was repaired with Vicryl. We checked the repair with range of motion and it was stable. The subcutaneous soft tissues were repaired with Vicryl in layers. The skin was approximated with pernio/Dermabond. Sterile dressings were applied followed by loose web roll and Samir bandage. The patient was transferred to a bed, and taken to recovery in stable and satisfactory condition. Beltran BECKER assisted with this complex procedure.
[2019-08-14] MEDS ORDERED: ROPIVACAINE 0.2%-NS ON-Q PUMP 1,090 MG, EMPTY PAIN BALL 1 EACH MISCELLANE PRN (17:12)
--- NOTE | 2019-08-14 17:43 | XR ---
EXAMINATION TYPE: XR knee limited LT DATE OF EXAM: 08/14/2019 CLINICAL HISTORY: Postoperative evaluation Two views of the left knee are submitted. Identified are changes of total knee arthroplasty with fem oral and tibial components appearing well seated. Postsurgical soft tissue changes are noted. Align ment is anatomic.
[2019-08-14 18:20] VITALS: BMI 42.7
--- NOTE | 2019-08-14 19:46 | P.ANPRN ---
Procedure Note - Anesthesia - Nerve Block Performed Left Adductor Canal Infusion Time Out Performed: Yes Date of Procedure: 08/14/19 Procedure Start Time: 13:06 Procedure Stop Time: 13:20 Location of Patient: PreOp Indication: Acute Post-Operative Pain, Requested by Surgeon Sedation Type: Sedate with meaningful contact maintained Preparation: Sterile Prep, Sterile Dressing Position: Supine Catheter: Indwelling Needle Types: Pajunk Needle Gauge: 21 Ultrasound used to visualize needle placement: Yes Ultrasound used to observe medication spread: Yes Blood Aspirated: No Pain Paresthesia on Injection Noted: No Resistance on Injection: Normal Image Stored and Saved: Yes Events: Uneventful and Well Tolerated (ropi .5% 30cc plus dexamethasone 4mg)
[2019-08-14] MEDS: SENNOSIDES-DOCUSATE SODIUM 1 EACH TAB PO SCH (21:54)
--- NOTE | 2019-08-14 22:43 | P.CONS ---
History of Present Illness - Reason for Consult Consult date: 08/14/19 Medical management Requesting physician: Rubin Muir - Chief Complaint Left knee surgery - History of Present Illness Consultation: This is a pleasant 69-year-old patient of Dr. Juliet marroquin. Patient's has undergone left total knee arthroplasty. Did tolerate some supper. Pain is controlled. No nausea vomiting. No chest pain. Patient about a chronic cough. No sputum production. No fever no chills. Long-standing smoker. Patient also the pain had been coming on for sometime. Worse with activity. Better with rest. It is localized to the knee. He tried conservative managements including pain medications. And anti-inflammatory. Review of systems: GEN.: Tired EYES: None HEENT: None NECK: None RESPIRATORY: As above CARDIOVASCULAR: None GASTROINTESTINAL: None GENITOURINARY: Urinary stress incontinence MUSCULOSKELETAL: Pain in the joints LYMPHATICS: None HEMATOLOGICAL: None PSYCHIATRY: None NEUROLOGICAL: None Past medical history to include: Primary osteoarthritis, skin cancer, urinary stress incontinence Social history: Lives alone. Smoking for close to 40 years. Down to a few cigarettes a day. Alcohol rarely. Family history: Reviewed, noncontributory to presentation Physical examination: VITAL SIGNS: 98.2, 98, 18, 146/68, 83% room air GENERAL: BMI 41.6, laying in bed, awake. EYES: Pupils equal. Conjunctiva normal. HEENT: External appearance of nose and ears normal, oral cavity grossly normal. NECK: JVD not raised; masses not palpable. HEART: First and second heart sounds are normal; no edema. LUNGS: Respiratory rate increased, fair air entry. ABDOMEN: Soft, nontender, liver spleen not palpable, no masses palpable. PSYCH: Alert and oriented x3; mood and affect normal. NEUROLOGICAL: Cranial nerves grossly intact; no facial asymmetry, power and sensation grossly intact. LYMPHATICS: No lymph nodes palpable in the axilla and neck MUSCULOSKELETAL: Dressing over the left knee INVESTIGATIONS, reviewed in the clinical context: None Assessment: -Left total knee arthroplasty -Morbid obesity BMI 41.6 -Chronic nicotine dependence patient cigarette smoker -Primary osteoarthritis Plan: Patient is Venodyne boots in place. Lovenox for DVT prophylaxis per Dr. Aguilar. Home medications resumed. Patient advised against smoking. Nicotine patch ordered. Thank you Dr. Aguilar Past Medical History Past Medical History: Cancer, Osteoarthritis (OA) Additional Past Medical History / Comment(s): skin CA Arm History of Any Multi-Drug Resistant Organisms: None Reported Past Surgical History: Hysterectomy, Tonsillectomy Additional Past Surgical History / Comment(s): Cataracts,Colonoscopy, Skin CA removed from Arm Past Anesthesia/Blood Transfusion Reactions: No Reported Reaction Past Psychological History: No Psychological Hx Reported Smoking Status: Current every day smoker Past Alcohol Use History: Rare Additional Past Alcohol Use History / Comment(s): has smoked for about 40 yrs; cut down to 3-4 cigs a day Past Drug Use History: None Reported - Past Family History Mother Family Medical History: No Reported History Medications and Allergies Home Medications Medication Instructions Recorded Confirmed Type Acetaminophen [Tylenol] 500 mg PO Q4H PRN 02/28/18 08/14/19 History Ibuprofen 200 - 400 mg PO Q6H PRN 08/02/19 08/14/19 History traMADol HCL [Ultram] 50 mg PO Q6HR PRN 08/02/19 08/14/19 History Cholecalciferol [Vitamin D3 (25 4,000 unit PO DAILY 08/08/19 08/14/19 History Mcg = 1000 Iu)] Allergies Allergy/AdvReac Type Severity Reaction Status Date / Time No Known Allergies Allergy Verified 08/14/19 12:12 Physical Exam Vitals: Vital Signs Temp Pulse Resp BP Pulse Ox 08/14/19 20:20 98.2 F 98 18 146/88 93 L 08/14/19 17:44 95 16 152/63 93 L 08/14/19 17:29 94 18 154/67 94 L 08/14/19 17:14 96 22 144/62 94 L 08/14/19 16:59 97 F L 110 H 25 H 152/71 94 L 08/14/19 13:24 72 16 136/72 100 08/14/19 12:18 97.5 F L 85 18 150/85 96 Intake and Output 08/14/19 08/14/19 08/14/19 06:59 14:59 22:59 Intake Total 900 751 Output Total 35 Balance 900 716 Intake: IV 900 751 Output: Estimated Blood Loss 35
[2019-08-15] MEDS: LACTATED RINGERS 1,000 ML IV SCH ×3 (01:08→11:51)
[2019-08-15] MEDS: HYDROcodone/APAP 5-325MG 1 EACH TAB PO PRN ×4 (03:32→21:54)
[2019-08-15] MEDS: ENOXAPARIN 30 MG/0.3 ML SYRINGE SQ SCH ×2 (06:53→21:15)
[2019-08-15] MEDS: MELOXICAM 7.5 MG TAB PO SCH (06:53)
[2019-08-15 07:15] LABS: RBC 4.41 m/uL (3.80-5.40); WBC 14.4 k/uL (3.8-10.6)
[2019-08-15 07:16] LABS: Basophils # (A) 0.1 k/uL (0-0.2); Basophils % (A) 1 %; Eosinophils # (A) 0.1 k/uL (0-0.7); Eosinophils % (A) 0 %; HCT 41.7 % (34.0-46.0); HGB 13.6 gm/dL (11.4-16.0); Lymphocytes % (A) 7 %; MCH 30.8 pg (25.0-35.0); MCHC 32.6 g/dL (31.0-37.0); MCV 94.5 fL (80.0-100.0); Mean Platelet Volume 6.8; Monocytes # (A) 0.6 k/uL (0-1.0); Monocytes % (A) 4 %; Neutrophils # (A) 12.7 k/uL (1.3-7.7); Neutrophils % (A) 88 %; Platelet Count 265 k/uL (150-450); RDW 13.6 % (11.5-15.5)
--- NOTE | 2019-08-15 07:46 | P.PN ---
Progress Note - Text 08/15 656am 79-year-old female status post total knee replacement by Dr. Muir. Patient has an On-Q pump for postop pain control with the solution running at 8 mL an hour with a VAS of 4 patient is doing well, plan to continue On-Q pump infusion.
--- NOTE | 2019-08-15 13:11 | P.PN ---
Subjective Progress Note Date: 08/15/19 Principal diagnosis: Status post left total knee arthroplasty Patient evaluated at bedside, she is resting comfortably. Her pain is controlled. She did note some increase in pain when ambulating. Denies chest pain or shortness of breath. Objective - Vital Signs Vital signs: Vital Signs Temp 98.0 F 08/15/19 07:20 Pulse 78 08/15/19 07:20 Resp 18 08/15/19 07:20 BP 123/77 08/15/19 07:20 Pulse Ox 94 L 08/15/19 07:20 Intake & Output 08/14/19 08/15/19 08/15/19 18:59 06:59 18:59 Intake Total 1651 880 240 Output Total 35 Balance 1616 880 240 Intake: IV 1651 Intake, IV Titration 300 Amount Lactated Ringers 1,000 ml 300 @ 100 mls/hr IV .Q10H LEONARD Rx#:[id number] Oral 580 240 Output: Estimated Blood Loss 35 Other: Voiding Method Toilet Toilet # Voids 1 1 - Exam Left lower extremity: Incision is clean, dry, and intact. The armin are in good condition. There is minimal soft tissue swelling and ecchymosis surrounding the medial and lateral aspects of the incision. Calf is soft, no tenderness with palpation. Plantar flexion, dorsiflexion, EHL, FHL are intact. Sensory exam to light touch throughout the extremity is intact, dorsal pedis pulses 2+. - Labs CBC & Chem 7: 08/15/19 06:35 Labs: Abnormal Lab Results - Last 24 Hours (Table) 08/15/19 Range/Units 06:35 WBC 14.4 H (3.8-10.6) k/uL Neutrophils # 12.7 H (1.3-7.7) k/uL Assessment and Plan Plan: Assessment: Postoperative day 1 status post left total knee arthroplasty Plan: Pain control, continue current medication GI and DVT prophylaxis, continue current medication Home care instructions discussed Icing and elevating techniques discussed Encourage incentive spirometer Medical recommendations Plan for discharge to rehab when insurance allows. Patient does live alone and will require assistance with ADLs. Time with Patient: Less than 30
[2019-08-15] MEDS: SENNOSIDES-DOCUSATE SODIUM 1 EACH TAB PO SCH (21:15)
--- NOTE | 2019-08-15 23:19 | P.PN ---
Progress Note - Text Progress Note Date: 08/15/19 - Chief Complaint Left knee surgery interval history: This is a pleasant 69-year-old patient of Dr. Juliet Walsh. Patient's has undergone left total knee arthroplasty. Did tolerate some supper. Pain is controlled. No nausea vomiting. No chest pain. Patient about a chronic cough. No sputum production. No fever no chills. Long-standing smoker. Patient also the pain had been coming on for sometime. Worse with activity. Better with rest. It is localized to the knee. He tried conservative managements including pain medications. And anti-inflammatory. today-feeling better. Some pain is present. No new issues. Did work with therapy. Did tolerate her meals. Review of systems: Was done for constitutional, cardiovascular, GI, pulmonary. relevant finding as above Active Medications Hydrocodone Bitart/Acetaminophen ([place] 5-325) 1 each PO Q6HR PRN PRN Reason: Pain Scale 1 to 5 Last Admin: 08/15/19 16:51 Dose: 1 each Documented by: Hydrocodone Bitart/Acetaminophen ([place] 5-325) 2 each PO Q6HR PRN PRN Reason: Pain Scale 6 to 10 Last Admin: 08/15/19 21:54 Dose: 2 each Documented by: Ropivacaine 1,090 mg/ Bandage/ (Support Products 1 each) 0 mg MISCELLANE Q2H PRN PRN Reason: Breakthrough Pain Last Admin: 08/14/19 17:29 Dose: 1,090 mg Documented by: Enoxaparin Sodium (Lovenox) 30 mg SQ Q12HR [facility] Last Admin: 08/15/19 21:15 Dose: 30 mg Documented by: Hydromorphone HCl (Dilaudid) 0.5 mg IVP Q3HR PRN PRN Reason: Pain Scale 7 to 10 Hydromorphone HCl (Dilaudid) 0.25 mg IVP Q3HR PRN PRN Reason: Pain Scale 4 to 6 Hydromorphone HCl (Dilaudid) 0.125 mg IVP Q3HR PRN PRN Reason: Pain Scale 1 to 3 Lactated Ringer's (Lactated Ringers) 1,000 mls @ 20 mls/hr IV .Q24H [facility] Last Admin: 08/15/19 01:08 Dose: Not Given Documented by: Lactated Ringer's (Lactated Ringers) 1,000 mls @ 100 mls/hr IV .Q10H [facility] Last Admin: 08/15/19 11:51 Dose: Not Given Documented by: Lidocaine HCl (.Xylocaine 1% Inj (10mg/Ml) For Iv Start) 0.1 ml INTRADERMA PER PROTOCOL PRN PRN Reason: IV Start Last Admin: 08/14/19 12:29 Dose: 0.1 ml Documented by: Meloxicam (Mobic) 7.5 mg PO DAILY [facility] Last Admin: 08/15/19 06:53 Dose: 7.5 mg Documented by: Naloxone HCl (Narcan) 0.2 mg IV Q2M PRN PRN Reason: Opioid Reversal Ondansetron HCl (Zofran) 4 mg IVP Q8HR PRN PRN Reason: Nausea And Vomiting Senna/Docusate Sodium (Senokot-S) 2 each PO HS [facility] Last Admin: 08/15/19 21:15 Dose: Not Given Documented by: Physical examination: VITAL SIGNS: 98.2, 78, 22, 123/70, 94% room air GENERAL: sitting up, comfortable. EYES: Pupils equal. Conjunctiva normal. HEENT: External appearance of nose and ears normal, oral cavity grossly normal. NECK: JVD not raised; masses not palpable. HEART: First and second heart sounds are normal; no edema. LUNGS: Respiratory rate increased, fair air entry. ABDOMEN: Soft, nontender, liver spleen not palpable, no masses palpable. PSYCH: Alert and oriented x3; mood and affect normal. MUSCULOSKELETAL: Dressing over the left knee INVESTIGATIONS, reviewed in the clinical context: white count 14.4 hemoglobin 13.6 Assessment: -Left total knee arthroplasty -Morbid obesity BMI 41.6 -Chronic nicotine dependence patient cigarette smoker -Primary osteoarthritis -Leukocytosis, reactive secondary to surgery. No click evidence of infection Plan: care was discussed with the patient. tolerating a diet. Continue current medications. Thank you Dr. Aguilar
[2019-08-16] MEDS: LACTATED RINGERS 1,000 ML IV SCH ×4 (02:20→23:03)
[2019-08-16] MEDS: HYDROcodone/APAP 5-325MG 1 EACH TAB PO PRN ×4 (04:19→21:57)
[2019-08-16] MEDS: MELOXICAM 7.5 MG TAB PO SCH (08:32)
[2019-08-16] MEDS: ENOXAPARIN 30 MG/0.3 ML SYRINGE SQ SCH ×2 (09:41→20:06)
--- NOTE | 2019-08-16 12:06 | P.PN ---
Subjective Progress Note Date: 08/16/19 Principal diagnosis: Status post left total knee arthroplasty Patient evaluated at bedside, she is resting comfortably. Her pain is controlled. Denies chest pain or shortness of breath. Objective - Vital Signs Vital signs: Vital Signs Temp 98.1 F 08/16/19 07:00 Pulse 88 08/16/19 07:00 Resp 17 08/16/19 07:00 BP 130/72 08/16/19 07:00 Pulse Ox 96 08/16/19 07:00 Intake & Output 08/15/19 08/16/19 08/16/19 18:59 06:59 18:59 Intake Total 940 Balance 940 Intake: Oral 940 Other: Voiding Method Toilet Toilet Toilet # Voids 1 1 - Exam Left lower extremity: Incision is clean, dry, and intact. The armin are in good condition. There is minimal soft tissue swelling and ecchymosis surrounding the medial and latera l aspects of the incision. Calf is soft, no tenderness with palpation. Plantar flexion, dorsiflexion, EHL, FHL are intact. Sensory exam to light touch throughout the extremity is intact, dorsal pedis pulses 2+. - Labs CBC & Chem 7: 08/15/19 06:35 Assessment and Plan Plan: Assessment: Postoperative day #2 status post left total knee arthroplasty Plan: Pain control, continue current medication GI and DVT prophylaxis, continue current medication Home care instructions discussed Icing and elevating techniques discussed Encourage incentive spirometer Medical recommendations Plan for discharge to rehab when insurance allows. Patient does live alone and will require assistance with ADLs. Time with Patient: Less than 30
[2019-08-16] MEDS: SENNOSIDES-DOCUSATE SODIUM 1 EACH TAB PO SCH (20:05)
--- NOTE | 2019-08-16 22:18 | P.PN ---
Progress Note - Text Progress Note Date: 08/16/19 - Chief Complaint Left knee surgery interval history: This is a pleasant 69-year-old patient of Dr. Juliet Walsh. Patient's has undergone left total knee arthroplasty. Did tolerate some supper. Pain is controlled. No nausea vomiting. No chest pain. Patient about a chronic cough. No sputum production. No fever no chills. Long-standing smoker. Patient also the pain had been coming on for sometime. Worse with activity. Better with rest. It is localized to the knee. He tried conservative managements including pain medications. And anti-inflammatory. today-sitting up. Did work with therapy. No new issues. Some pain is present. Did tolerate her diet. Breathing stable. Review of systems: Was done for constitutional, cardiovascular, GI, pulmonary. relevant finding as above Active Medications Hydrocodone Bitart/Acetaminophen ([place] 5-325) 1 each PO Q6HR PRN PRN Reason: Pain Scale 1 to 5 Last Admin: 08/16/19 11:10 Dose: 1 each Documented by: Hydrocodone Bitart/Acetaminophen ([place] 5-325) 2 each PO Q6HR PRN PRN Reason: Pain Scale 6 to 10 Last Admin: 08/16/19 21:57 Dose: 2 each Documented by: Ropivacaine 1,090 mg/ Bandage/ (Support Products 1 each) 0 mg MISCELLANE Q2H PRN PRN Reason: Breakthrough Pain Last Admin: 08/14/19 17:29 Dose: 1,090 mg Documented by: Enoxaparin Sodium (Lovenox) 30 mg SQ Q12HR [facility] Last Admin: 08/16/19 20:06 Dose: 30 mg Documented by: Hydromorphone HCl (Dilaudid) 0.5 mg IVP Q3HR PRN PRN Reason: Pain Scale 7 to 10 Hydromorphone HCl (Dilaudid) 0.25 mg IVP Q3HR PRN PRN Reason: Pain Scale 4 to 6 Hydromorphone HCl (Dilaudid) 0.125 mg IVP Q3HR PRN PRN Reason: Pain Scale 1 to 3 Lactated Ringer's (Lactated Ringers) 1,000 mls @ 100 mls/hr IV .Q10H [facility] Last Admin: 08/16/19 09:15 Dose: Not Given Documented by: Lidocaine HCl (.Xylocaine 1% Inj (10mg/Ml) For Iv Start) 0.1 ml INTRADERMA PER PROTOCOL PRN PRN Reason: IV Start Last Admin: 08/14/19 12:29 Dose: 0.1 ml Documented by: Meloxicam (Mobic) 7.5 mg PO DAILY [facility] Last Admin: 08/16/19 08:32 Dose: 7.5 mg Documented by: Naloxone HCl (Narcan) 0.2 mg IV Q2M PRN PRN Reason: Opioid Reversal Ondansetron HCl (Zofran) 4 mg IVP Q8HR PRN PRN Reason: Nausea And Vomiting Senna/Docusate Sodium (Senokot-S) 2 each PO HS [facility] Last Admin: 08/16/19 20:05 Dose: 2 each Documented by: Physical examination: VITAL SIGNS: 98.1, 68, 17, 130/72, 96% room air GENERAL: sitting up, comfortable. EYES: Pupils equal. Conjunctiva normal. HEENT: External appearance of nose and ears normal, oral cavity grossly normal. NECK: JVD not raised; masses not palpable. HEART: First and second heart sounds are normal; no edema. LUNGS: Respiratory rate increased, fair air entry. ABDOMEN: Soft, nontender, liver spleen not palpable, no masses palpable. PSYCH: Alert and oriented x3; mood and affect normal. MUSCULOSKELETAL: Dressing over the left knee INVESTIGATIONS, reviewed in the clinical context: white count 14.4 hemoglobin 13.6 Assessment: -Left total knee arthroplasty -Morbid obesity BMI 41.6 -Chronic nicotine dependence patient cigarette smoker -Primary osteoarthritis -Leukocytosis, reactive secondary to surgery. No click evidence of infection Plan: Stable. Doing better. Continue current medication treatment plan. Thank you Dr. Aguilar
[2019-08-17] MEDS: LACTATED RINGERS 1,000 ML IV SCH ×2 (05:39→18:15)
[2019-08-17] MEDS: HYDROcodone/APAP 5-325MG 1 EACH TAB PO PRN ×3 (05:39→21:08)
[2019-08-17 07:32] LABS: Basophils % (A) 0 %; Eosinophils # (A) 0.2 k/uL (0-0.7); Eosinophils % (A) 2 %; HCT 39.9 % (34.0-46.0); Lymphocytes # (A) 1.8 k/uL (1.0-4.8); Lymphocytes % (A) 22 %; MCH 30.8 pg (25.0-35.0); MCHC 32.5 g/dL (31.0-37.0); MCV 94.7 fL (80.0-100.0); Mean Platelet Volume 5.9; Monocytes # (A) 0.5 k/uL (0-1.0); Monocytes % (A) 6 %; Neutrophils # (A) 5.7 k/uL (1.3-7.7); Neutrophils % (A) 69 %; Platelet Count 271 k/uL (150-450); RBC 4.21 m/uL (3.80-5.40); RDW 13.7 % (11.5-15.5); WBC 8.3 k/uL (3.8-10.6)
[2019-08-17] MEDS: MELOXICAM 7.5 MG TAB PO SCH (09:42)
[2019-08-17] MEDS: ENOXAPARIN 30 MG/0.3 ML SYRINGE SQ SCH ×2 (09:47→21:08)
--- NOTE | 2019-08-17 12:47 | P.PN ---
Subjective Progress Note Date: 08/17/19 Principal diagnosis: Status post left total knee arthroplasty Patient evaluated at bedside, she is resting comfortably. Her pain is controlled. Denies chest pain or shortness of breath. Objective - Vital Signs Vital signs: Vital Signs Temp 98.5 F 08/17/19 07:00 Pulse 83 08/17/19 07:00 Resp 17 08/17/19 07:00 BP 116/66 08/17/19 07:00 Pulse Ox 96 08/17/19 07:00 Intake & Output 08/16/19 08/17/19 08/17/19 18:59 06:59 18:59 Intake Total 500 580 Balance 500 580 Intake: Oral 500 580 Other: Voiding Method Toilet Toilet - Exam Left lower extremity: Incision is clean, dry, and intact. The armin are in good condition. There is minimal soft tissue swelling and ecchymosis surrounding the medial and lateral aspects of the incision. Calf is soft, no tenderness with palpation. Plantar flexion, dorsiflexion, EHL, FHL are intact. Sensory exam to light touch throughout the extremity is intact, dorsal pedis pulses 2+. - Labs CBC & Chem 7: 08/17/19 07:10 Assessment and Plan Plan: Assessment: Postoperative day #3 status post left total knee arthroplasty Plan: Pain control, continue current medication GI and DVT prophylaxis, continue current medication Home care instructions discussed Icing and elevating techniques discussed Encourage incentive spirometer Medical recommendations Plan for discharge to rehab when insurance allows. Patient does live alone and will require assistance with ADLs. Time with Patient: Less than 30
[2019-08-17] MEDS: SENNOSIDES-DOCUSATE SODIUM 1 EACH TAB PO SCH (21:08)
--- NOTE | 2019-08-17 23:10 | P.PN ---
Progress Note - Text Progress Note Date: 08/17/19 - Chief Complaint Left knee surgery interval history: This is a pleasant 69-year-old patient of Dr. Juliet Walsh. Patient's has undergone left total knee arthroplasty. Did tolerate some supper. Pain is controlled. No nausea vomiting. No chest pain. Patient about a chronic cough. No sputum production. No fever no chills. Long-standing smoker. Patient also the pain had been coming on for sometime. Worse with activity. Better with rest. It is localized to the knee. He tried conservative managements including pain medications. And anti-inflammatory. today-a chair. No new issues. Did work with therapy. DC planning in place. Did tolerate her diet. Pain control. Review of systems: Was done for constitutional, cardiovascular, GI, pulmonary. relevant finding as above Active Medications Hydrocodone Bitart/Acetaminophen ([place] 5-325) 1 each PO Q6HR PRN PRN Reason: Pain Scale 1 to 5 Last Admin: 08/16/19 11:10 Dose: 1 each Documented by: Hydrocodone Bitart/Acetaminophen ([place] 5-325) 2 each PO Q6HR PRN PRN Reason: Pain Scale 6 to 10 Last Admin: 08/17/19 21:08 Dose: 2 each Documented by: Ropivacaine 1,090 mg/ Bandage/ (Support Products 1 each) 0 mg MISCELLANE Q2H PRN PRN Reason: Breakthrough Pain Last Admin: 08/14/19 17:29 Dose: 1,090 mg Documented by: Enoxaparin Sodium (Lovenox) 30 mg SQ Q12HR [facility] Last Admin: 08/17/19 21:08 Dose: 30 mg Documented by: Hydromorphone HCl (Dilaudid) 0.5 mg IVP Q3HR PRN PRN Reason: Pain Scale 7 to 10 Hydromorphone HCl (Dilaudid) 0.25 mg IVP Q3HR PRN PRN Reason: Pain Scale 4 to 6 Hydromorphone HCl (Dilaudid) 0.125 mg IVP Q3HR PRN PRN Reason: Pain Scale 1 to 3 Lactated Ringer's (Lactated Ringers) 1,000 mls @ 100 mls/hr IV .Q10H [facility] Last Admin: 08/17/19 18:15 Dose: Not Given Documented by: Lidocaine HCl (.Xylocaine 1% Inj (10mg/Ml) For Iv Start) 0.1 ml INTRADERMA PER PROTOCOL PRN PRN Reason: IV Start Last Admin: 08/14/19 12:29 Dose: 0.1 ml Documented by: Meloxicam (Mobic) 7.5 mg PO DAILY [facility] Last Admin: 08/17/19 09:42 Dose: 7.5 mg Documented by: Naloxone HCl (Narcan) 0.2 mg IV Q2M PRN PRN Reason: Opioid Reversal Ondansetron HCl (Zofran) 4 mg IVP Q8HR PRN PRN Reason: Nausea And Vomiting Senna/Docusate Sodium (Senokot-S) 2 each PO HS [facility] Last Admin: 08/17/19 21:08 Dose: Not Given Documented by: Physical examination: VITAL SIGNS: 98.4, 60, 18, 144/80, 94% room air GENERAL: sitting upin a chair, comfortable. EYES: Pupils equal. Conjunctiva normal. HEENT: External appearance of nose and ears normal, oral cavity grossly normal. NECK: JVD not raised; masses not palpable. HEART: First and second heart sounds are normal; no edema. LUNGS: Respiratory rate increased, fair air entry. ABDOMEN: Soft, nontender, liver spleen not palpable, no masses palpable. PSYCH: Alert and oriented x3; mood and affect normal. MUSCULOSKELETAL: Dressing over the left knee INVESTIGATIONS, reviewed in the clinical context: White count 8.3 hemoglobin 13 Previous testing white count 14.4 hemoglobin 13.6 Assessment: -Left total knee arthroplasty -Morbid obesity BMI 41.6 -Chronic nicotine dependence patient cigarette smoker -Primary osteoarthritis -Leukocytosis, reactive secondary to surgery. No click evidence of infection, improved Plan: medically stable. Continue current medications. Thank you Dr. Aguilar
[2019-08-18] MEDS: LACTATED RINGERS 1,000 ML IV SCH (02:48)
[2019-08-18] MEDS: HYDROcodone/APAP 5-325MG 1 EACH TAB PO PRN ×2 (05:26→14:05)
[2019-08-18 09:18] VITALS: RESP 16
[2019-08-18] MEDS: MELOXICAM 7.5 MG TAB PO SCH (09:51)
[2019-08-18] MEDS: ENOXAPARIN 30 MG/0.3 ML SYRINGE SQ SCH (10:13)
[2019-08-18 12:21] VITALS: BP 128/57; TEMP 98.3
--- NOTE | 2019-08-18 13:38 | P.PN ---
Subjective Progress Note Date: 08/18/19 Principal diagnosis: Status post left total knee arthroplasty Patient evaluated at bedside, she is resting comfortably. Her pain is controlled. Denies chest pain or shortness of breath. Objective - Vital Signs Vital signs: Vital Signs Temp 98.3 F 08/18/19 12:15 Pulse 84 08/18/19 12:15 Resp 16 08/18/19 12:15 BP 128/57 08/18/19 12:15 Pulse Ox 96 08/18/19 12:15 Intake & Output 08/17/19 08/18/19 08/18/19 18:59 06:59 18:59 Intake Total 580 Output Total 1 Balance -1 580 Intake: Oral 580 Output: Stool 1 Other: Voiding Method Toilet # Voids 1 1 - Exam Left lower extremity: Incision is clean, dry, and intact. The armin are in good condition. There is minimal soft tissue swelling and ecchymosis surrounding the medial and lateral aspects of the incision. Calf is soft, no tenderness with palpation. Plantar flexion, dorsiflexion, EHL, FHL are intact. Sensory exam to light touch throughout the extremity is intact, dorsal pedis pulses 2+. - Labs CBC & Chem 7: 08/17/19 07:10 Assessment and Plan Plan: Assessment: Postoperative day #4 status post left total knee arthroplasty Plan: Pain control, dc on oral medication GI and DVT prophylaxis, continue current medication Home care instructions discussed Icing and elevating techniques discussed Encourage incentive spirometer Medical recommendations Plan for discharge to rehab when insurance allows. Patient does live alone and will require assistance with ADLs. Time with Patient: Less than 30
--- NOTE | 2019-08-18 13:44 | P.DS ---
Providers Date of admission: 08/14/2019 Expected date of discharge: 08/18/19 Attending physician: Rubin Muir Primary care physician: Malia Walsh Hospital Course: Date of admission: 08/14/2019 Date of discharge: 08/18/2019 Admission diagnosis: Status post post left total knee arthroplasty Discharge diagnosis: Same Attending physician: Dr. Muir Surgical procedures: Left total knee arthroplasty Brief history: Patient is a 69-year-old female with a history of progressive primary left knee osteoarthritis. At this point patient has failed conservative treatment measures and has opted to proceed with a elective left total knee arthroplasty. Hospital course: Details of patient's surgery can be found in operative report. Patient tolerated the procedure well and was subsequently transported to orthopedic floor. Patient's orthopeidc and medical care was provided daily. Patient had daily laboratory tests performed for evaluation of overall blood counts. Patient had daily physical therapy to include strengthening range of motion as well as education with walker ambulation. Patient had daily CPM usage as part of their physical therapy program. Patient was treated with Lovenox for their postoperative DVT prophylaxis during their inpatient stay. Patient was noted to have a relatively uneventful postoperative course. Patient reported satisfactory pain control with oral pain medications by postoperative day 0. Patient showed satisfactory progress with physical therapy. Patient moved steadily through the program and had no difficulty meeting the goals by postoperative day 4. Given patient's otherwise satisfactory course and having met physical therapy goals, plan is to discharge patient rehab on postoperative day 4. Discharge condition/disposition: Patient will be discharged rehab in stable co ndition. Discharge medications: Instructions are given on resumption of patient's normal daily medications per primary care recommendation, in addition patient will be prescribed [place] 5 mg/325 mg, Colace 100 mg, aspirin 81 mg. Discharge instructions: 1. Wound care and infection precautions, keep incision dry and covered while showering, no lotions, creams, moisturizers. No soaking, tubs, pools, hottubs. Do not scrub over the incision. 2. Weight-bear as tolerated with walker / cane until follow-up. 3. Ice and elevate when necessary. Do not exceed 20 minutes per hour with ice pack. 4. Utilize compression sleeve until seen at first follow up appointment. 5. Visiting nursing care. 6. Home physical therapy including home CPM. 7. Pain meds and anticoagulants per prescription. 8. Pain medication has potential to cause constipation. Increase oral fluid and fiber intake. Contact primary care provider if you have not had a bowel movement within 48 hours after discharge 9. No anti-inflammatory medication until discussed at first post operative visit, this including Motrin, Aleve, Mobic, Diclofenac. 10. Follow up in office at 2 weeks postop with Beltran Shah PA-C 11. Follow up with your primary care doctor 7-10 days after discharge. 12. Contact [facility] with any questions, . Procedures: Left total knee arthroplasty Patient Condition at Discharge: Good Plan - Discharge Summary Discharge Rx Participant: No New Discharge Prescriptions: New Aspirin [Adult Low Dose Aspirin EC] 81 mg PO BID #60 tablet. Docusate [Colace] 100 mg PO DAILY #30 capsule Hydrocodone/Acetaminophen [[place] 5-325] 1 - 2 each PO Q6HR PRN #56 tab PRN Reason: Pain No Action Acetaminophen [Tylenol] 500 mg PO Q4H PRN PRN Reason: Pain traMADol HCL [Ultram] 50 mg PO Q6HR PRN PRN Reason: Pain Ibuprofen 200 - 400 mg PO Q6H PRN PRN Reason: Pain Cholecalciferol [Vitamin D3 (25 Mcg = 1000 Iu)] 4,000 unit PO DAILY Discharge Medication List Acetaminophen [Tylenol] 500 mg PO Q4H PRN 02/28/18 [History] Ibuprofen 200 - 400 mg PO Q6H PRN 08/02/19 [History] traMADol HCL [Ultram] 50 mg PO Q6HR PRN 08/02/19 [History] Cholecalciferol [Vitamin D3 (25 Mcg = 1000 Iu)] 4,000 unit PO DAILY 08/08/19 [History] Aspirin [Adult Low Dose Aspirin EC] 81 mg PO BID #60 tablet. 08/18/19 [Rx] Docusate [Colace] 100 mg PO DAILY #30 capsule 08/18/19 [Rx] Hydrocodone/Acetaminophen [[place] 5-325] 1 - 2 each PO Q6HR PRN #56 tab 08/18/19 [Rx] Follow up Appointment(s)/Referral(s): Parish Shah PAC [PHYSICIAN TRAUMA THERAPIST] - 08/30/19 3:10 pm Patient Instructions/Handouts: *Surgery [facility] - On-Q Pain Pump Discharge Instructions, Knee Replacement (DC) Activity/Diet/Wound Care/Special Instructions: Orthopedic Discharge Instructions: 1. Wound care and infection precautions, keep incision dry and covered while showering, no lotions, creams, moisturizers. No soaking, pools, hot tubs. Do not scrub over incision. 2. Weight-bear as tolerated with walker / cane until follow-up. 3. Ice and elevate when necessary. Do not exceed 20 minutes per hour with ice pack. 4. Utilize compression sleeve until seen at first follow up appointment. 5. Pain meds and anticoagulants per prescription. 6. Pain medication has potential to cause constipation. Increase oral fluid and fiber intake. Contact primary care provider if you have not had a bowel movement within 48 hours after discharge. 7. No anti-inflammatory medication until discussed at first post operative visit, this including Motrin, Aleve, Mobic, Diclofenac. 8. Follow up in office at 2 weeks postop with Beltran Shah PA-C 9. Follow up with your primary care doctor 7-10 days after discharge. 10. Contact [facility] with any questions, . Discharge Disposition: TRANSFER TO SNF/ECF
[2019-08-18 16:45] VITALS: PULSE 86
--- NOTE | 2019-08-21 14:35 | P.PN ---
Progress Note - Text Progress Note Date: 08/18/19 - Chief Complaint Left knee surgery interval history: This is a pleasant 69-year-old patient of Dr. Juliet Walsh. Patient's has undergone left total knee arthroplasty. Today-feeling better. His controlled. Did tolerate her diet. No new issues. Did work with therapy. No chronic symptoms. Review of systems: Was done for constitutional, cardiovascular, GI, pulmonary. relevant finding as above Current medications reviewed from today's electronic records Physical examination: VITAL SIGNS: 98.1, 87, 17, 131/84, 97% room air GENERAL: sitting, comfortable. EYES: Pupils equal. Conjunctiva normal. HEENT: External appearance of nose and ears normal, oral cavity grossly normal. NECK: JVD not raised; masses not palpable. HEART: First and second heart sounds are normal; no edema. LUNGS: Respiratory rate increased, fair air entry. ABDOMEN: Soft, nontender, liver spleen not palpable, no masses palpable. PSYCH: Alert and oriented x3; mood and affect normal. MUSCULOSKELETAL: Dressing over the left knee INVESTIGATIONS, reviewed in the clinical context: White count 8.3 hemoglobin 13 Previous testing white count 14.4 hemoglobin 13.6 Assessment: -Left total knee arthroplasty -Morbid obesity BMI 41.6 -Chronic nicotine dependence patient cigarette smoker -Primary osteoarthritis -Leukocytosis, reactive secondary to surgery. No evidence of infection, improved Plan: Doing well. Stable. Continue current medications. Thank you Dr. Aguilar
== END 2019-08-18 18:13 | disposition home health service (06) | DRG 470 ==
LOC: OR 11:44 → 4SSUR 16:56 → OR 17:01 → 4SSUR 17:01
PROVIDERS: ADMIT Orthopaedic Surgery; ATTEND Orthopaedic Surgery
PROC: 0SRD0J9 Replacement of Left Knee Joint with Synthetic Substitute, Cemented, Open Approach (ICD-10-PCS; principal; 2019-08-14 13:30)
DX: M17.12 Unilateral primary osteoarthritis, left knee (principal); Z68.41 Body mass index [BMI] 40.0-44.9, adult; E66.01 Morbid (severe) obesity due to excess calories; F17.210 Nicotine dependence, cigarettes, uncomplicated; D72.829 Elevated white blood cell count, unspecified; N39.3 Stress incontinence (female) (male); R05 Cough; Z90.710 Acquired absence of both cervix and uterus; Z96.642 Presence of left artificial hip joint; Z85.828 Personal history of other malignant neoplasm of skin; Z98.42 Cataract extraction status, left eye; Z98.41 Cataract extraction status, right eye; Z96.1 Presence of intraocular lens
CPT/HCPCS: 64448; 76942; 85025; 88300